=== PATIENT | female | born 1990 | race Caucasian/White ===

== ENCOUNTER → 2019-04-28 | Emergency (ER) | payer OTHER ==
[~2019-04-28] VITALS: Ht 170.2 cm; Wt 59.4 kg
[~2019-04-28] MED LIST: ALLEGRA ALLERG180 MG; ASPIR 8181 MG; PEPCID40 MG PO; ZOFRAN4 MG PO; ZYFLO600 MG
== END | disposition home or self-care (01) ==
LOC: ER 21:30
DX: K29.00 Acute gastritis without bleeding (principal); R10.84 Generalized abdominal pain; M54.89 Other dorsalgia